=== PATIENT | male | born 1980 | race Caucasian/White ===

== ENCOUNTER 2019-05-06 21:30 | Emergency (ER) | payer SELFPAY ==
--- NOTE | 2019-05-06 21:58 | ER Document Report ---
ED Medical Screen (RME) - General Chief Complaint: Laceration Stated Complaint: RIGHT FINGER LACERATION Time Seen by Provider: 05/06/19 21:52 Primary Care Provider: GABE VELIZ [Primary Care Provider] - Follow up as needed Mode of Arrival: Ambulatory Information source: Patient Notes: 38-year-old male presented to ED for laceration to the right index finger. He states he does not know when his last tetanus shot was. He states he cut it on the engine of a lawnmower. He states he cut his finger at home a couple hours ago. It is a very significant clot around the end of the right index finger.. Will give him tetanus immunization and get x-ray of the finger. Patient is alert oriented respirations regular nonlabored speaking in full sentences. Use of tobacco alcohol does sometimes use marijuana. I have greeted and performed a rapid initial assessment of this patient. A comprehensive ED assessment and evaluation of the patient, analysis of test res ults and completion of medical decision making process will be conducted by an additional ED providers. Past Medical History - Social History Cigarette use (# per day): No Chew tobacco use (# tins/day): No Frequency of alcohol use: None Drug Abuse: Marijuana Occupation: [employer] with: Family Family history: Reviewed & Not Pertinent - Past Medical History Cardiac Medical History: Reports: None Pulmonary Medical History: Reports: None EENT Medical History: Reports: None Neurological Medical History: Reports: None Endocrine Medical History: Reports: None Renal/ Medical History: Reports: None Malignancy Medical History: Reports None GI Medical History: Reports: None Musculoskeltal Medical History: Reports None Skin Medical History: Reports None Psychiatric Medical History: Reports: Hx Attention Deficit Hyperactivity Disorder Traumatic Medical History: Reports: None Infectious Medical History: Reports: None Surgical Hx: Negative Past Surgical History: Reports: None - Immunizations Immunizations up to date: Yes Hx Diphtheria, Pertussis, Tetanus Vaccination: Yes - 05/06/2019 Physical Exam - Vital signs Vitals: Temp Pulse Resp BP Pulse Ox 98.2 F 105 H 18 143/91 H 100 05/06/19 21:39 05/06/19 21:39 05/06/19 21:39 05/06/19 21:39 05/06/19 21:39 Course - Vital Signs Vital signs: Temp Pulse Resp BP Pulse Ox 98.2 F 105 H 18 143/91 H 100 05/06/19 21:39 05/06/19 21:39 05/06/19 21:39 05/06/19 21:39 05/06/19 21:39 Doctor's Discharge - Discharge Referrals: LOCALMD,NO [Primary Care Provider] - Follow up as needed
[2019-05-06] MEDS ORDERED: DIPH/PERTUSS(ACELL)/TETANUS VAC/PF 0.5 ML SYR (>=10YO) IM ONE (21:59)
--- NOTE | 2019-05-06 22:33 | RADIOLOGY REPORT (SQ) ---
Right second finger three view on 05/06/2019 at 10:10 PM Clinical indications: Laceration COMPARISON: None FINDINGS: Soft tissue laceration is noted in the distal second finger. There is a tiny chip fracture involving the base of the second distal phalanx that appears to be related to the laceration and therefore likely a small open fracture. The displaced fracture fragment is seen along the radial and volar aspect of the base of the second distal phalanx. No other fracture is noted. Visualized joints are well aligned. IMPRESSION: Apparent small open chip fracture involving the base of the second distal phalanx.
[2019-05-07] MEDS ORDERED: BUPIVACAINE HCL 0.5 % INJ/PF 30 ML SDV INJ ONE (01:17)
--- NOTE | 2019-05-07 01:17 | ER Document Report ---
ED Wound - General Chief Complaint: Laceration Stated Complaint: RIGHT FINGER LACERATION Time Seen by Provider: 05/06/19 21:52 Primary Care Provider: GABE VELIZ [NO LOCAL MD] - Follow up as needed Mode of Arrival: Ambulatory Notes: CHIEF COMPLAINT: Right index finger laceration HPI: 38-year-old [id number] male presenting to the emergency department complaining of a laceration to the right index finger. Patient was working on a lawnmower and states there was a spinning portion of the mower on the top aspect, not the blade that struck the finger. States he can flex extend the finger denies numbness tingling. ROS: See HPI - all other systems were reviewed and are otherwise negative Constitutional: no fever Integumentary: no rash, positive laceration Allergy: no hives Musculoskeletal: Positive extremity pain or swelling Neurological: no numbness/tingling, no weakness MEDICATIONS: I agree with the patient medications as charted by the RN. ALLERGIES: I agree with the allergies as charted by the RN. PAST MEDICAL HISTORY/PAST SURGICAL HISTORY: Reviewed and agree as charted by RN. SOCIAL HISTORY: Reviewed and agree as charted by RN. FAMILY HISTORY: No significant familial comorbid conditions directly related to patient complaint EXAM: Reviewed vital signs as charted by RN. CONSTITUTIONAL: Alert and oriented and responds appropriately to questions. Well-appearing; well-nourished, mild distress secondary to pain HEAD: Normocephalic; atraumatic EYES: Conjunctivae clear, sclerae non-icteric ENT: normal nose; no rhinorrhea; moist mucous membranes NECK: Supple without meningismus CARD: symmetric distal pulses RESP: Normal chest excursion without splinting or tachypnea ABD/GI: non-distended BACK: The back appears normal EXT: Normal ROM in all joints; no cyanosis, no effusions, no edema. There is a 2 cm laceration on the radial side of the right index finger just distal to the DIP joint space region. No nail involvement. Patient is able to fully flex and extend the finger at the DIP joint space of the right index finger. No visible tendon injury. Sensation is intact in the distal fingertip to touch with capillary refill less than 3 seconds SKIN: Normal color for age and race; warm; dry; good turgor NEURO: Moves all extremities equally; Motor and sensory function intact PSYCH: The patient's mood and manner are appropriate. Grooming and personal hygiene are appropriate. MDM: 38-year-old male with a laceration to the right index finger. There was an initial delay in evaluating this patient as he had not been marked ready for provider out of the PI T process. Patient does appear neurologically intact. X-ray does show a chip fracture at the DIP joint space region. I will give patient Ancef. I spoke with the patient at length about this. He will need close follow-up with orthopedics to ensure healing and mobility. We will plan to copiously irrigate the area and loosely close with chromic sutures TRAVEL OUTSIDE OF THE [place] IN LAST 30 DAYS: No - Related Data Home Medications: adderall Past Medical History - General Information source: Patient - Social History Smoking Status: Never Smoker Cigarette use (# per day): No Chew tobacco use (# tins/day): No Frequency of alcohol use: None Drug Abuse: Marijuana Occupation: [employer] Lives with: Family Family History: Reviewed & Not Pertinent Patient has suicidal ideation: No Patient has homicidal ideation: No - Past Medical History Cardiac Medical History: Reports: None Pulmonary Medical History: Reports: None EENT Medical History: Reports: None Neurological Medical History: Reports: None Endocrine Medical History: Reports: None Renal/ Medical History: Reports: None Malignancy Medical History: Reports None GI Medical History: Reports: None Musculoskeletal Medical History: Reports None Skin Medical History: Reports None Psychiatric Medical History: Reports: Hx Attention Deficit Hyperactivity Disorder Traumatic Medical History: Reports: None Infectious Medical History: Reports: None Surgical Hx: Negative Past Surgical History: Reports: None - Immunizations Immunizations up to date: Yes Hx Diphtheria, Pertussis, Tetanus Vaccination: Yes - 05/06/2019 Physical Exam - Vital signs Vitals: Temp Pulse Resp BP Pulse Ox 98.2 F 105 H 18 143/91 H 100 05/06/19 21:39 05/06/19 21:39 05/06/19 21:39 05/06/19 21:39 05/06/19 21:39 Course - Vital Signs Vital signs: Temp Pulse Resp BP Pulse Ox 98.1 F 102 H 16 146/97 H 99 05/06/19 22:00 05/06/19 22:00 05/06/19 22:00 05/06/19 22:00 05/06/19 22:00 Procedures - Laceration/Wound Repair Right Distal Finger 2nd digit Time completed: 02:45 Wound length (cm): 2 Wound's Depth, Shape: Irregular, Contused tissue. No: Stellate, Nail-avulsed Laceration pre-procedure: Sterile PPE donned, Sterile drapes applied, Shur-Clens applied Anesthetic type: 0.5% Bupivacaine - digital block Wound explored: No foreign body removed, Contaminated - + fracture Irrigated w/ Saline (mLs): 1,000 Wound Debrided: Minimal Wound Repaired With: Sutures Suture Size/Type: 4:0, Other - chromic Number of Sutures: 6 Layer Closure?: No Post-procedure wound care: Sterile dressing applied, Splint applied Post-procedure NV exam normal: Yes Complications: No Discharge - Discharge Clinical Impression: Laceration of finger, right, complicated Qualifiers: Encounter type: initial encounter Qualified Code(s): S61.219A - Laceration without foreign body of unspecified finger without damage to nail, initial encounter Fracture, finger, distal phalanx, open Qualifiers: Encounter type: initial encounter Finger: index finger Fracture alignment: nondisplaced Laterality: right Qualified Code(s): S62.660B - Nondisplaced fracture of distal phalanx of right index finger, initial encounter for open fracture Condition: Stable Disposition: HOME, SELF-CARE Additional Instructions: Gently clean the wound area daily with soap and water apply antibiotic ointment and the splint until you follow-up with orthopedics. Call the orthopedic clinic on Wednesday for reevaluation of the wound, as there was a fracture underneath the laceration is very important that you follow-up to make sure that this heals properly and you do not end up having any limitation of range of motion or a bone infection Prescriptions: Cephalexin Monohydrate [Keflex 500 mg Capsule] 500 mg PO Q6H 5 Days #20 capsule Hydrocodone/Acetaminophen [[place] 5-325 mg Tablet] 1 tab PO Q4 PRN #15 tablet PRN Reason: Referrals: SAMANTHA CRESPO MD [ACTIVE PROVISIONAL STAFF] - Follow up as needed
[2019-05-07] MEDS ORDERED: CEFAZOLIN INJ 1 GM VIAL IV ONE (01:23)
[2019-05-07 03:09] VITALS: BP 123/77
[2019-05-07] MEDS ORDERED: HYDROCODONE/ACETAMINOPHEN 5-325 MG (6 TAB/ER DISP) PO PRN (03:28)
== END 2019-05-07 03:35 | disposition home or self-care (01) ==
LOC: ER 21:30
DX: S62.660B Nondisplaced fracture of distal phalanx of right index finger, initial encounter for open fracture (principal); W45.8XXA Other foreign body or object entering through skin, initial encounter; Y93.89 Activity, other specified
CPT/HCPCS: 73140; 90715; 12001; J3490; J0690; 99283